=== PATIENT | male | born 1985 | race African-American/Black ===

== ENCOUNTER 2017-06-11 23:58 | Emergency (ER) | payer MEDICAID ==
[~2017-06-11] VITALS: Ht 170.2 cm; Wt 82.0 kg
[2017-06-12] MEDS ORDERED: LIDOCAINE HCL 1% 20ML VIAL (Pyxis) INJ INFIL ONE (01:15)
[2017-06-12] MEDS ORDERED: IBUPROFEN 800MG TABLET PO ONE (02:30)
[2017-06-12 03:00] VITALS: BP 129/77
[2017-06-12] MEDS ORDERED: BACITRACIN ZINC OINT UDPKT TOP ONE (03:30)
== END 2017-06-12 03:40 | disposition home or self-care (01) ==
LOC: ER 06-12 00:13
DX: S81.812A Laceration without foreign body, left lower leg, initial encounter (principal); S81.811A Laceration without foreign body, right lower leg, initial encounter; F17.200 Nicotine dependence, unspecified, uncomplicated; W54.0XXA Bitten by dog, initial encounter; Y93.89 Activity, other specified; Y92.89 Other specified places as the place of occurrence of the external cause; Y99.8 Other external cause status
CPT/HCPCS: 12002; 99283; J3490; X7700; Z7610